=== PATIENT | male | born 1975 | race Caucasian/White ===

== ENCOUNTER 2020-02-25 11:08 | Emergency (ER) | payer OTHER ==
[~2020-02-25] VITALS: Ht 190.5 cm; Wt 104.3 kg
[~2020-02-25 11:08] MED LIST: FLAGYL500 MG PO; HYDROCODONE-AP1 EAC6 PO; MEDROLDOSEPACK PO; NOHOMEMEDICATIONS; ONDANSETRON HCL4 M2 PO
[2020-02-25] MEDS ORDERED: CLARITIN10 M3 PO (11:11)
[2020-02-25] MEDS ORDERED: FLEXERIL PO (12:33)
[2020-02-25] MEDS ORDERED: PERCOCET 5-3251 EACH PO (12:33)
[2020-02-25] MEDS ORDERED: ZOFRAN ODT4 MG SUBLING (12:33)
[2020-02-25 13:06] VITALS: BP 161/92
== END 2020-02-25 13:06 | disposition home or self-care (01) ==
LOC: M.ERS 11:08
DX: S30.0XXA Contusion of lower back and pelvis, initial encounter (principal); S80.812A Abrasion, left lower leg, initial encounter; W11.XXXA Fall on and from ladder, initial encounter; Y93.89 Activity, other specified; Y92.89 Other specified places as the place of occurrence of the external cause; Y99.8 Other external cause status